=== PATIENT | female | born 1955 | race Two or more races ===

== ENCOUNTER 2017-06-03 10:35 | Outpatient (CLI) | payer OTHER | END 2017-06-03 14:56 | disposition home or self-care (01) | LOC: MAMO-SONO 10:35 → EDBD 10:35 → MAMO-SONO 10:45 | DX: Z13.1 Encounter for screening for diabetes mellitus (principal); Z13.9 Encounter for screening, unspecified; Z12.31 Encounter for screening mammogram for malignant neoplasm of breast; N60.22 Fibroadenosis of left breast ==

== ENCOUNTER 2018-01-07 13:33 | Outpatient (CLI) | payer OTHER | END 2018-01-07 13:35 | disposition home or self-care (01) | LOC: SONOGRAMA 13:33 | DX: M75.112 Incomplete rotator cuff tear or rupture of left shoulder, not specified as traumatic (principal) ==

== ENCOUNTER 2018-04-30 10:28 | Outpatient (CLI) | payer OTHER | END 2018-04-30 10:31 | disposition home or self-care (01) | LOC: MAMO-SONO 10:28 | DX: R92.2 Inconclusive mammogram (principal); Z12.39 Encounter for other screening for malignant neoplasm of breast; Z12.31 Encounter for screening mammogram for malignant neoplasm of breast ==

== ENCOUNTER 2018-08-26 12:10 | Outpatient (CLI) | payer OTHER | END 2018-08-26 12:13 | disposition home or self-care (01) | LOC: RAD 12:10 | DX: M25.561 Pain in right knee (principal) ==

== ENCOUNTER 2018-08-27 10:32 | Outpatient (CLI) | payer OTHER | END 2018-08-27 10:54 | disposition home or self-care (01) | LOC: MRI 10:32 | DX: R22.32 Localized swelling, mass and lump, left upper limb (principal) | CPT/HCPCS: 73219 ==

== ENCOUNTER 2018-11-04 10:12 | Outpatient (CLI) | payer OTHER | END 2018-11-04 10:24 | disposition home or self-care (01) | LOC: RAD 10:12 | DX: M17.0 Bilateral primary osteoarthritis of knee (principal) ==

== ENCOUNTER 2019-04-23 13:20 | Outpatient (CLI) | payer OTHER | END 2019-04-23 14:38 | disposition home or self-care (01) | LOC: RAD 13:20 | DX: I11.9 Hypertensive heart disease without heart failure (principal) ==

== ENCOUNTER 2019-05-14 12:29 | Outpatient (CLI) | payer OTHER | END 2019-05-14 12:50 | disposition home or self-care (01) | LOC: MAMO-SONO 12:29 | DX: Z12.31 Encounter for screening mammogram for malignant neoplasm of breast (principal); Z87.898 Personal history of other specified conditions; N60.01 Solitary cyst of right breast ==

== ENCOUNTER 2020-11-22 09:58 | Outpatient (CLI) | payer OTHER | END 2020-11-22 09:59 | disposition home or self-care (01) | LOC: MAMO-SONO 09:58 | PROVIDERS: ATTEND Family Medicine | DX: R92.1 Mammographic calcification found on diagnostic imaging of breast (principal); N64.89 Other specified disorders of breast; Z12.31 Encounter for screening mammogram for malignant neoplasm of breast ==

== ENCOUNTER 2021-12-11 11:34 | Outpatient (CLI) | payer OTHER | END 2021-12-11 11:40 | disposition home or self-care (01) | LOC: MAMO-SONO 11:34 | PROVIDERS: ATTEND Obstetrics & Gynecology Obstetrics | DX: N64.4 Mastodynia (principal); Z12.31 Encounter for screening mammogram for malignant neoplasm of breast; Z80.3 Family history of malignant neoplasm of breast ==

== ENCOUNTER 2022-07-13 09:00 | Outpatient (CLI) | payer OTHER | END 2022-07-13 09:01 | disposition home or self-care (01) | LOC: LAB 09:00 | PROVIDERS: ATTEND Radiology Diagnostic Radiology | DX: R63.8 Other symptoms and signs concerning food and fluid intake (principal) ==

== ENCOUNTER 2022-07-13 10:19 | Outpatient (CLI) | payer OTHER | END 2022-07-13 10:25 | disposition home or self-care (01) | LOC: MRI 10:19 | DX: I63.9 Cerebral infarction, unspecified (principal) | CPT/HCPCS: 70553; Q9965 ==

== ENCOUNTER 2022-10-23 10:35 | Outpatient (CLI) | payer OTHER | END 2022-10-23 10:42 | disposition home or self-care (01) | LOC: SONOGRAMA 10:35 | DX: R78.4 Finding of other drugs of addictive potential in blood (principal); Z20.09 Contact with and (suspected) exposure to other intestinal infectious diseases; C70.0 Malignant neoplasm of cerebral meninges ==

== ENCOUNTER → 2022-11-19 | Outpatient (CLI) | payer OTHER | END | disposition home or self-care (01) | LOC: NUCLEAR 08:45 | PROVIDERS: ATTEND Family Medicine | DX: Z00.01 Encounter for general adult medical examination with abnormal findings (principal); N95.1 Menopausal and female climacteric states ==

== ENCOUNTER 2023-08-29 10:11 | Outpatient (CLI) | payer OTHER | END 2023-08-29 10:19 | disposition home or self-care (01) | LOC: MAMO-SONO 10:11 | PROVIDERS: ATTEND Family Medicine | DX: N60.11 Diffuse cystic mastopathy of right breast (principal); Z12.31 Encounter for screening mammogram for malignant neoplasm of breast ==

== ENCOUNTER 2024-08-10 10:52 | Outpatient (CLI) | payer OTHER | END 2024-08-10 10:53 | disposition home or self-care (01) | LOC: NUCLEAR 10:52 | PROVIDERS: ATTEND Thoracic Surgery (Cardiothoracic Vascular Surgery) | DX: I87.2 Venous insufficiency (chronic) (peripheral) (principal) ==

== ENCOUNTER 2024-08-14 10:34 | Outpatient (CLI) | payer OTHER | END 2024-08-14 10:35 | disposition home or self-care (01) | LOC: NUCLEAR 10:34 | PROVIDERS: ATTEND Thoracic Surgery (Cardiothoracic Vascular Surgery) | DX: I73.9 Peripheral vascular disease, unspecified (principal) ==